=== PATIENT | male | born 1980 | race Caucasian/White ===

== ENCOUNTER 2025-02-27 18:32 | Emergency (ER) | payer OTHER, SELFPAY ==
--- OUTSIDE RECORDS SUMMARY | 2025-02-27 18:34 | XMS_ITS | Clinical Summary ---
Author Organization [facility] Address [address] [place] [address] Care Team Providers Care Long Goods Drier Name Role Phone Clinician, Not Found MD Primary Care Provider Un available Source Comments You are receiving this document as you are listed as the primary care provider,follow-up provider, or the patient has been referred to you for consultation.This is in compliance with the Medicare and[facility] EHR Incentive Program,which states Providers who transition their patient to another setting of careor provider of care or refers their patient to another provider of care shouldprovide summary care record for each transition of care or referral. 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 Social History Tobacco Use Types Packs/Day Years Used Date Smoking Tobacco: Never Smokeless Tobacco: Never Tobacco Cessation:Counseling Given: Not Answered Sex and Gender Information Value Date Recorded Sex Assigned at Not on file Legal Sex Male 3:34 PM [employer] Gender Identity Not on file Sexual Orientation Not on file Last Filed Vital Signs Vital Sign Reading Time Taken Comments Blood Pressure - - Pulse - - Temperature 36.9 C (98.5 F) 08/04/2023 9:02 AM [employer] Respiratory Rate - - Oxygen Saturation - - Inhaled Oxygen Concentration - - Weight 80.7 kg (178 lb) 06/07/2024 9:26 AM CDT Height 172.7 cm (5' 8) 06/07/2024 9:26 AM CDT Body Mass Index 27.06 06/07/2024 9:26 AM CDT Plan of Treatment Scheduled Procedures Name Priority Associated Diagnoses Date/Ti me FUSION METATARSAL JOINT Osteochondral defect Health Maintenance Due Date Last Done Comments Colon Cancer Screening Plan Due 1979 Diabetes Screening- (based on age and BMI) 1979 Hep C Screening (Preventive Services) 1979 Tuberculosis Screening 1979 Hep B Screening ([employer]) 1980 Adult Preventive Visit 1997 DTaP/Tdap/Td Vaccine (1 - Tdap) 1998 HepB Vaccine (1) 1998 Cholesterol 2014 COVID-19 Vaccine (5 - season) 2024 06/03/2022, 04/04/2022, 01/21/2021, Additional history exists Influenza Vaccine (#1) 2025 , 06/03/2022, 06/13/2021 Zoster/Shingles Vaccine (1 of 2) 2029 HIV Screening (Preventive Services) Completed 01/08/2024 HPV Vaccine Aged Out No longer eligi ble based on patient's age to complete this topic HepA Vaccine Aged Out No longer eligi ble based on patient's age to complete this topic Hib Vaccine Aged Out No longer eligi ble based on patient's age to complete this topic IPV (Polio) Vaccine Aged Out No longe r eligible based on patient's age to complete this topic MCV4 Vaccine Aged Out No longer eligi ble based on patient's age to complete this topic Meningococcal B Vaccine Aged Out No l onger eligible based on patient's age to complete this topic Pneumococcal Vaccine Aged Out No long er eligible based on patient's age to complete this topic Insurance [employer] [place] [address] Care Teams Long Goods Drier Relationship Specialty Start Date End Date Clinician, Not Found, [place] [address] PCP - General 12/28/23
--- OUTSIDE RECORDS SUMMARY | 2025-02-27 18:34 | XMS_ITS | Clinical Summary ---
Author Organization [facility] Address [address] [place] [id number] Care Team Providers Care Sample Carrier Name Role Phone Pcp, No Primary Care Provider Unavailabl e Allergies No known active allergies Medications No known medications Social History Tobacco Use Types Packs/Day Years Used Date Smoking Tobacco: Never Smokeless Tobacco: Never Tobacco Cessation:Counseling Given: Not Answered Alcohol Use Standard Drinks/Week Comments Not Currently 0 (1 standard drink = 0.6 oz pur e alcohol) Sex and Gender Information Value Date Recorded Sex Assigned at Not on file Legal Sex Male 11:46 AM CDT Gender Identity Not on file Sexual Orientation Not on file Obstetrics History Last Filed Vital Signs Vital Sign Reading Time Taken Comments Blood Pressure 126/76 11/25/2024 2:03 PM CDT Pulse 81 11/25/2024 2:03 PM CDT Temperature - - Respiratory Rate - - Oxygen Saturation 97% 11/25/2024 2:03 PM CDT Inhaled Oxygen Concentration - - Weight 81.9 kg (180 lb 8 oz) 11/25/2024 2:03 PM CDT Height 176.5 cm (5' 9.5) 11/25/2024 2:03 PM CDT Body Mass Index 26.27 11/25/2024 2:03 PM CDT Plan of Treatment Health Maintenance Due Date Last Done Comments Tetanus booster 1990 Depression screening for age 12+ 1991 Hepatitis B series for 19+ ( 1 of 3 - 19+ 3-dose series) 1998 COVID-19 vaccine series (2023- season) 2024 Colonoscopy through age 75 2024 Influenza Vaccine (#1) 2025 BMI (ht and wt on same day) for age 18+ 11/25/2025 11/25/2024, 01/08/2024 Lipids for age 45-75 01/07/2029 01/08/2024 HIV for age 15-65 Completed 01/08/2024 Hepatitis C screening for ag e 18-79 Completed 01/08/2024 Pneumococcal series for age 6-49 Aged Out No longer eligible b ased on patient's age to complete this topic Procedures Procedure Name Priority Date/Time Associated Diagnosis Comments ANTI HIV 1/2 Routine 01/08/2024 4:45 PM CDT Encounter for screening for HIV ANTI HCV Routine 01/08/2024 4:45 PM CDT Encounter for hepatitis C screening test for low risk patient LIPID PANEL W REFLEX MEASURED LDL Routine 01/08/2024 4:45 PM CDT Encounter for screening for lipoid disorders from Last 3 Months or Most Recently Relevant to Health Maintenance Results * (ABNORMAL) LIPID PANEL W REFLEX MEASURED LDL [[id number]] (01/08/2024 4:45 PM CDT) CHOLESTEROL,TOTAL 220(H) 100 - 199 mg/dL 01/11/2024 4:29 PM CDT [facility] Comment: Cholesterol, Total Reference Ranges Desirable <200 mg/dL Borderline 200-239 mg/dL High >=240 mg/dL TRIGLYCERIDES 161(H) <150 mg/dL 01/11/2024 4:29 PM CDT [facility] HDL CHOLESTEROL 50 >40 mg/dL 4:29 PM CDT [facility] NON-HDL CHOLESTEROL 170(H) <145 mg/dl 01/11/2024 4:29 PM CDT [facility] CHOL/HDL RATIO 4.40 <4.50 01/11/2024 4:29 PM CDT [facility] LDL CHOLESTEROL 138(H) <=130 mg/dL 01/11/2024 4:29 PM CDT [facility] VLDL CHOLESTEROL 32(H) <=30 mg/dL 01/11/2024 4:29 PM CDT [facility] PROVIDER ORDERED STATUS RANDOM 01/11/2024 4:29 PM CDT [facility] Blood BLOOD SPECIMEN / Unknown Venipuncture / Unknown 01/08/2024 4:45 PM CDT 01/08/2024 4:47 PM CDT Marilin CHAVEZ CHEMISTRY Final Res ult Performing Organization Address [facility] de Phone Number [facility] [address] [address], [place] * ANTI HCV [50000.2] (01/08/2024 4:45 PM CDT) Pathologist [facility] HEPATITIS C ANTIBODY Non-Reacti ve Non-React beti 01/11/2024 4:02 PM CDT [facility] Comment:Please note, per www .CDC.gov: If a patient is known to be at high risk of HCV infection, or is symptomatic, and the physician's suspicion of HCV infection is high, HCV RNA testing is often employed and is of diagnostic value, even after an initial negative anti-HCV test result. Blood BLOOD SPECIMEN / Unknown Venipuncture / Unknown 01/08/2024 4:45 PM CDT 01/08/2024 4:47 PM CDT Marilin CHAVEZ SEND OUTS Final Res ult Performing Organization Address [facility] Co de Phone Number [facility] [address] [address], [place] * ANTI HIV 1/2 [66720.0] (01/08/2024 4:45 PM CDT) Pathologist [facility] HIV-1/HIV-2 SCREEN Non-Reacti ve Non-Reacti ve 01/11/2024 4:04 PM CDT [facility] Comment:HIV-1 p24 and HIV-1/ HIV-2 Ab Not Detected. Blood BLOOD SPECIMEN / Unknown Venipuncture / Unknown 01/08/2024 4:45 PM CDT 01/08/2024 4:47 PM CDT us Marilin CHAVEZ SEND OUTS Final Res ult [facility] [address] [place] [address], [place] from Last 3 Months or Most Recently Relevant to Health Maintenance Care Teams Sample Carrier Relationship Specialty Start Date End Date Pcp, No . PCP - General 12/18/22
[2025-02-27 18:41] VITALS: BP 123/71; PULSE 75; RESP 16; TEMP 37.7; O2SAT 98; BMI 24.6
--- NOTE | 2025-02-27 19:06 | CRLHL7_ITS ---
For Patients: As a result of the Century Cures Act, medical imaging exams and procedure reports are released immediately into your electronic medical record. You may view this report before your referring provider. If you have questions, please contact your health care provider. INDICATION: Headache. Vertigo. TECHNIQUE: Non-contrast CT of the head is submitted. No comparisons. FINDINGS: The ventricles, sulci and gyri are of normal size, shape and contour. Midline structures are centrally located. No convincing evidence of intra- or extra-axial fluid collections. IMPRESSION: 1. No radiographic evidence of acute intracranial abnormalities. Please note that all CT scans at this facility use dose modulation, iterative reconstruction, and/or weight-based dosing when appropriate to reduce radiation dose to as low as reasonably achievable. Dictated by Cal Reeves MD @ 02/27/2025 7:49:16 PM (Electronically Signed)
--- NOTE | 2025-02-27 19:23 | ED_ITS ---
HPI - Headache General Chief Complaint: Headache/Migraine Stated Complaint: Headache/Dizziness Time Seen by Provider: 02/27/25 18:34 History of Present Illness HPI Narrative: This 44-year-old male comes in reporting headache for the past week. He also has episodes of lightheadedness and vertigo. He states that he has felt chilled but did not measure a temperature. His temperature on arrival here was at 100? F. he does not report any cough or shortness of breath. He does not have any dysuria symptoms. He states that the pain does extend a bit down into his neck. Related Data Home Medications ?Medication ?Instructions ?Recorded ?Confirmed No Known Home Medications 02/27/25 07/2 09/03 Allergies Allergy/AdvReac Type Severity Reaction Status Date / Time No Known Drug Allergies Allergy Verified 02/27/25 18:51 PFSH PFSH Social History Smoking Status: Never smoker How often do you have a drink containing alcohol: never AUDIT-C Alcohol total score: 0 Non-prescribed substance use: denies use Exam Const: Vital Signs, click to edit/add: Vital Signs - 24 hr 02/27/25 18:41 02/27/25 21:20 Temperature 100 F H Pulse Rate 75 Pulse Rate [Pulse Oximeter] 75 Respiratory Rate 16 16 Blood Pressure 118/70 Blood Pressure [Ri ght Upper Arm] 123/71 Pulse Oximetry 98 95 Oxygen Delivery Me thod Room Air Room Air Course Vital Signs Vital signs: Initial Vital Signs Temperature 100 F H 02/27/25 18:41 Temperature Source Temporal Artery Scan 02/27/25 18:41 Pulse Rate 75 02/27/25 18:41 Respiratory Rate 16 02/27/25 18:41 Blood Pressure 123/71 02/27/25 18:41 Blood Pressure Mean 88 02/27/25 18:41 Blood Pressure Position Sitting 02/27/25 18:41 Pulse Oximetry 98 02/27/25 18:41 Oxygen Delivery Method Room Air 02/27/25 18:41 Vital Signs Temperature 100 F H 02/27/25 18:41 Pulse Rate 75 02/27/25 18:41 Respiratory Rate 16 02/27/25 18:41 Blood Pressure 123/71 02/27/25 18:41 Pulse Oximetry 98 02/27/25 18:41 Oxygen Delivery Method Room Air 02/27/25 18:41 Temperature 100 F H 02/27/25 18:41 Pulse Rate 75 02/27/25 21:20 Respiratory Rate 16 02/27/25 21:20 Blood Pressure 118/70 02/27/25 21:20 Pulse Oximetry 95 02/27/25 21:20 Oxygen Delivery Method Room Air 02/27/25 21:20 Medications Administered Medications: Discontinued Medications Generic Name Dose Route Start Last Admin Trade Name Radhames PRN Reason Stop Dose Admin Ketamine HCl 20 mg/ Sodium 100.2 mls @ 300.6 mls/hr 02/27/25 20:36 02/27/25 21:11 Chloride IVPB 02/27/25 20:37 Not Given ONCE ONE Ketamine HCl 20 mg/ Sodium 100.2 mls @ 200.4 mls/hr 02/27/25 21:06 02/27/25 21:40 Chloride IVPB 02/27/25 21:07 Infused ONCE ONE Infusion Ketorolac Tromethamine 30 mg 02/27/25 19:06 02/27/25 19:37 Ketorolac 30 Mg/Ml Inj IVP 02/27/25 19:07 30 mg ONCE ONE Administration Meclizine HCl 25 mg 02/27/25 19:06 02/27/25 19:37 Meclizine Hcl 25 Mg Tablet PO 02/27/25 19:07 25 mg ONCE ONE Administration Ondansetron HCl 4 mg 02/27/25 19:06 02/27/25 19:37 Ondansetron 2 Mg/Ml Inj IVP 02/27/25 19:07 4 mg ONCE ONE Administration MDM - Headache MDM Narrative Medical decision making narrative: This patient comes in reporting headache for 3 or 4 days that is very severe. He also reports some chills and arrives with a temperature of 100? F. An IV was established and lactate returns at 1.5. His white count and other lab results are also reassuring. A CT scan of his head is obtained and this also shows no acute findings. The patient did receive IV doses of Toradol and Zofran and this did not bring enough relief to his pain. He states that it was yet at 8/10 in severity. He then received an IV dose of ketamine 20 mg and this broughtbetter relief of his symptoms. He is okay to be discharged home and I did provide [facility] prescriptions for Toradol and Zofran. Lab Data Labs: Lab Results 02/27/25 Range/Units 19:30 WBC 8.03 (4.50-11.00) K/uL RBC 4.78 (4.30-5.90) m/uL Hgb 13.7 (13.5-17.5) gm/dL Hct 41.2 (37.0-53.0) % MCV 86 (80-100) fL MCH 29 (26-34) pg MCHC 33 (32-36) gm/dL RDW Coeff of Mohit 12.5 (11.5-15.5) % Plt Count 244 (140-440) K/uL Neut % (Auto) 70.9 (42.0-72.0) % Lymph % (Auto) 15.2 L (20-44) % [place]ois % (Auto) 13.3 H (0.0-11.0) % Eos % (Auto) 0.1 (0.0-7.0) % Baso % (Auto) 0.4 (0.0-3.0) % Neut # (Auto) 5.69 (1.7-7.0) K/uL Lymph # (Auto) 1.20 (0.90-2.90) K/uL [place] # (Auto) 1.10 H (0.00-0.90) K/UL Eos # (Auto) 0.01 (0.00-0.50) K/uL Baso # (Auto) 0.03 (0.00-0.30) K/uL Abs Immat Gran (auto) 0.01 (0.00-0.30) K/uL Imm/Tot Granulo (auto) 0.1 % Sodium 136 (135-149) mmol/L Potassium 4.2 (3.6-5.1) mmol/L Chloride 100 (96-114) mmol/L Carbon Dioxide 33 H (20-32) mmol/L Anion Gap 3 L (7-15) mEq/L BUN 16 (5-24) mg/dL Creatinine 1.0 (0.5-1.5) mg/dL Estimated Creat Clear 96.32 Estimated GFR 95 ml/min Glucose 126 H (60-115) mg/dL Lactate 1.5 (0.5-1.9) mmol/L Calcium 9.3 (8.4-10.6) mg/dL Imaging Data CT scan - head: Radiologist's impression: No radiographic evidence of acute intracranial abnormalities. Discharge Plan Discharge Clinical Impression: Migraine Patient Disposition: Home, Self-Care Condition: Improved Additional Instructions: Take medication as needed and indicated. Follow up with MD return if worsening symptoms occur. Prescriptions: No Action No Known Home Medications Follow Up/Referrals: Azalia Faustin NP [Primary Care Provider, Family Practice] Stand Alone Forms: [employer] Info Instructions
[2025-02-27] MEDS: ONDANSETRON 2 MG/ML inj 4 MG IVP (19:37)
[2025-02-27] MEDS: MECLIZINE HCL 25 MG TABLET PO (19:37)
[2025-02-27 19:39] LABS: Lactate* 1.5 mmol/L (0.5-1.9)
[2025-02-27 20:00] LABS: Hematocrit 41.2 % (37.0-53.0); Hemoglobin* 13.7 gm/dL (13.5-17.5); Immature Granulocytes Abs Auto 0.01 K/uL (0.00-0.30); Immature Granulocytes Pct Auto 0.1 %; Mean Corpuscular HGB Conc 33 gm/dL (32-36); Mean Corpuscular Hemoglobin 29 pg (26-34); Mean Corpuscular Volume 86 fL (80-100); RDW Coefficient of Variation % 12.5 % (11.5-15.5); Red Blood Count 4.78 m/uL (4.30-5.90); White Blood Count* 8.03 K/uL (4.50-11.00)
[2025-02-27 20:05] LABS: Lymphocytes Absolute Auto 1.20 K/uL (0.90-2.90); Slide Review Reflex No
[2025-02-27 20:13] LABS: Chloride* 100 mmol/L (96-114); Potassium* 4.2 mmol/L (3.6-5.1); Sodium* 136 mmol/L (135-149)
[2025-02-27 20:16] LABS: Anion Gap 3 mEq/L (7-15); Blood Urea Nitrogen* 16 mg/dL (5-24); Carbon Dioxide* 33 mmol/L (20-32); Creatinine* 1.0 mg/dL (0.5-1.5); Est. Creatinine Clearance* 96.32; Estimated Glomerular Filt Rate 95 ml/min
[2025-02-27 20:17] LABS: Calcium* 9.3 mg/dL (8.4-10.6); Glucose* 126 mg/dL (60-115)
[2025-02-27] MEDS: KETAMINE 50 MG/0.5 ML 20 MG in 0.9 % SODIUM CHLORIDE 100 ml 100 ML 200.4 MG IVPB (21:07)
[2025-02-27 21:20] VITALS: BP 118/70; PULSE 75; RESP 16; O2SAT 95
== END 2025-02-27 22:51 | disposition home or self-care (01) ==
PROVIDERS: Emergency Provider Emergency Medicine Emergency Medical Services; PCP Nurse Practitioner Family
DX: G43.909 Migraine, unspecified, not intractable, without status migrainosus (principal)
CPT/HCPCS: 36415; 70450; 80048; 83605; 85025; 87040; 96365; 96375; 99284; A9270; J1885; J2405; J3490